=== PATIENT | female | born 1950 ===

== ENCOUNTER 2017-01-17 08:56 | Day surgery (SDC) | payer MEDICARE, BC ==
[2017-01-17] VITALS (17 sets, daily range): BP systolic 120–161; BP diastolic 61–103
[~2017-01-17] VITALS: Ht 165.1 cm; Wt 56.7 kg
[~2017-01-17 08:56] MED LIST: ceFAZolin 1gm in D5W 55ml IVP ONE; celeBREX 200mg Cap **SURGERY PATIENTS ONLY ORAL ONE; oxyCONTIN 20mg tab ORAL ONE
[2017-01-17] MEDS ORDERED: LISINOPRIL40 MG ORAL (09:56)
[2017-01-17] MEDS ORDERED: ATORVASTATIN CA20 MG ORAL (09:56)
--- NOTE | 2017-01-17 10:43 | Pre-Procedure Note/Attestation ---
Pre-Procedure Note/Attestation Complete Prior to Procedure Planned Procedure: left Procedure Narrative: ankle orif Indications for Procedure Pre-Operative Diagnosis: left ankle fracture Attestation I attest that I discussed the nature of the procedure; its benefits; risks and complications; and alternatives (and the risks and benefits of such alternatives ), prior to the procedure, with the patient (or the patient's legal security systems sales representative). I attest that, if there was a reasonable possibility of needing a blood transfusion, the patient (or the patient's legal security systems sales representative) was given the [facility] standardized written summary, pursuant to the [place] Blood Safety Act ([place] Health and Safety Code # 1645, as amended). I attest that I re-evaluated the patient just prior to the surgery and that there has been no change in the patient's H&P, except as documented below: ASHLEY MARTINEZ Jan 17, 2017 10:43
--- NOTE | 2017-01-17 10:43 | Operative Note - PDOC ---
Operative Note Operative Note Pre-op Diagnosis: left ankle fracture Procedure: left ankle orif Post-op Diagnosis: same as pre-op plus Operative Findings: consistent w/pre-op dx studies Anesthesia: regional Specimen: none Complications: none Condition: stable Estimated Blood Loss: none Implant(s) used?: Yes ASHLEY MARTINEZ Jan 17, 2017 10:43
[2017-01-17] MEDS ORDERED: Morphine Sulfate 10mg/ml Inj ONE (11:00)
[2017-01-17] MEDS ORDERED: Midazolam 2mg/2ml Inj ONE (11:00)
[2017-01-17] MEDS ORDERED: Lidocaine 1% MPF 10mg/ml 5ml ONE (11:00)
[2017-01-17] MEDS ORDERED: Metoclopramide 10mg/2ml Inj ONE (11:00)
[2017-01-17] MEDS ORDERED: Ketorolac 30mg Inj ONE (11:00)
[2017-01-17] MEDS ORDERED: Propofol 10mg/ml 20ml IV ONE (11:00)
[2017-01-17] MEDS ORDERED: Sterile Water Irrig 1000ml IRRIG ONE (11:00)
[2017-01-17] MEDS ORDERED: LR 1000ml ONE (11:00)
[2017-01-17] MEDS ORDERED: NS Irrig 1000ml IRRIG ONE (11:10)
--- NOTE | 2017-01-17 11:56 | Anethesia Preoperative Eval ---
Anesthesia Pre-op PMH/ROS General Date of Evaluation: Jan 17, 2017 Time of Evaluation: 11:54 Anesthesiologist: maria isabel ASA Score: ASA 2 Mallampati Score Class I : Soft palate, uvula, fauces, pillars visible Class II: Soft palate, uvula, fauces visible Class III: Soft palate, base of uvula visible Class IV: Only hard plate visible Mallampati Classification: Class II Surgeon: kassy Diagnosis: left ankle fx Surgical Procedure: ORIF left ankle Anesthesia History: none Family History: no anesthesia problems Allergies: Coded Allergies: No Known Allergies (Unverified , 01/16/17) Medications: see eMAR Past Medical History Cardiovascular: Reports: HTN Pulmonary: Denies: COPD, SARAH, asthma, other Gastrointestinal/Genitourinary: Denies: CRI, ESRD, GERD, other Neurologic/Psychiatric: Denies: CVA, TIA, dementia, depression/anxiety, other Endocrine: Denies: DM, hypothyroidism, other, steroids HEENT: Denies: [place] (L), [place] (R), cataract (L), cataract (R), glaucoma, other Hematology/Immune: Denies: DVT, anemia, bleeding disorder, other Musculoskeletal/Integumentary: Reports: OA Anesthesia Pre-op Phys. Exam Physician Exam Last Vital Signs Date Time Temp Pulse Resp B/P Pulse Ox O2 Delivery O2 Flow Rate FiO2 01/17/17 09:35 98.7 63 20 143/86 99 Room Air Constitutional: NAD Neurologic: CN 2-12 intact Cardiovascular: RRR Respiratory: CTA Gastrointestinal: S/NT/ND Airway Exam Mallampati Score: Class II MO: full ROM: full Dentures: no lower, no upper Anesthesia Pre-op A/P Studies Pre-op Studies: EKG - sr Risk Assessment & Plan Plan: general Status Change Before Surgery: No Pre-Antibiotics Drug: ancef Given Within 1 Hr of Incision: Yes Time Given: 11:35 DORETHA GARCIA CRNA Jan 17, 2017 11:56
[2017-01-17] MEDS ORDERED: Acetaminophen (Non formulary) 1,000 MG/100 ML ML IV ONE (11:57)
[2017-01-17] MEDS ORDERED: Metoclopramide 10mg/2ml Inj IVP PRN (12:00)
[2017-01-17] MEDS ORDERED: HYDROmorphone 1mg/ml Carpuject SUBQ PRN (12:00)
[2017-01-17] MEDS ORDERED: fentaNYL 100 mcg/2 mL IV PRN (12:00)
[2017-01-17] MEDS ORDERED: Norco 5mg/325mg tab ORAL PRN (12:00)
[2017-01-17] MEDS ORDERED: Tylenol #3 tab (300mg/30mg) ORAL PRN (12:00)
[2017-01-17] MEDS ORDERED: Meperidine 25mg/0.5ml Inj (FOR RIGORS ONLY) IV PRN (12:00)
[2017-01-17] MEDS ORDERED: D5 1/2NS 1,000 ML IV SCH (14:00)
[2017-01-17] MEDS ORDERED: Ropivacaine 2mg/ml Amp INJ ONE ×2 (14:28→14:37)
[2017-01-17] MEDS ORDERED: Lidocaine 2% MPF 5ml Vial INJ ONE (14:29)
--- NOTE | 2017-01-17 16:24 | 48 Hour Post Anesthesia Eval ---
Post Anesthesia Evaluation Procedure: left ankle ORIF Date of Evaluation: Jan 17, 2017 Time of Evaluation: 16:24 Blood Pressure Systolic: 112 0: 60 Pulse Rate: 70 Respiratory Rate: 14 O2 Sat by Pulse Oximetry: 99 Airway: patent Nausea: No Vomiting: No Hydration Status: adequate Cardiopulmonary Status: stable Mental Status/LOC: patient returned to baseline Post-Anesthesia Complications: none Follow-up care needed: N/A DORETHA GARCIA CRNA Jan 17, 2017 16:24
--- NOTE | 2017-01-17 16:25 | Immediate Post-Op Evaluation ---
Immediate Post-Op Evalulation Immediate Post-Op Evalulation Procedure: left ankle ORIF Date of Evaluation: Jan 17, 2017 Time of Evaluation: 13:00 IV Fluids: 500 Blood Pressure Systolic: 156 Blood Pressure Diastolic: 83 Pulse Rate: 81 Respiratory Rate: 12 O2 Sat by Pulse Oximetry: 100 Temperature (Fahrenheit): 99.3 Nausea: No Vomiting: No Complications none Patient Status: awake, reacts, patent Hydration Status: adequate Drug: ancef Given Within 1 Hr of Incision: Yes Time Given: 11:30 DORETHA GARCIA CRNA Jan 17, 2017 16:25
--- NOTE | 2017-01-17 23:30 | Operative Note - Dictated ---
DATE OF OPERATION: 01/17/2017 PREOPERATIVE DIAGNOSIS: Left trimalleolar ankle fracture dislocation. POSTOPERATIVE DIAGNOSIS: Left trimalleolar ankle fracture dislocation. PROCEDURES: Open reduction and internal fixation of left trimalleolar ankle fracture dislocation. ANESTHESIA: Popliteal with general. INDICATION FOR PROCEDURE: The patient is a pleasant female, who sustained a mechanical fall. She was diagnosed with a displaced trimalleolar ankle fracture dislocation. She was placed in a cast to let the swelling subside. She subsequently was admitted for left ankle open reduction and internal fixation. Risks, limitations, expectations, and complications of the procedure were discussed in detail including nonunion, malunion, need for future surgery, risk of anesthesia, medical complications, DVT, PE, and wound complications. DESCRIPTION OF PROCEDURE: An informed consent was obtained. The patient was put on operating table and then placed on block as well as general anesthesia. Tourniquet was applied to the left proximal leg. The left leg was prepped and draped in a sterile manner. Time-out was performed. Ancef was administered. An Esmarch was used to exsanguinate the extremity and lateral skin incision was then made. Blunt dissection of the femur was performed. There was some comminution. Lateral cortex of the bone is very superior osteoporotic bone. It is difficult to use the clamps for reduction fracture with the bone. Therefore, technique was performed. A [employer] distal fibular plate was selected. Distally, a cortical screw was placed and further reduction was performed and the cortical screw was placed in the proximal shaft. Once that was completed, 3 additional cortical screws were placed in the shaft. Once that was completed, 3 distal locking screws were placed with placing one of the cortical nonlocking screws. Once that was done, the wound was copiously irrigated. The skin was closed using 2-0 Vicryl, 3-0 Vicryl, and 3-0 Monocryl sutures. At this point, 2 guidewires were placed through the medial malleolus with two 4.0 cannulated screws were then placed percutaneously. Once that was done, a posterior splint was applied. The patient was awoken and taken to the recovery room with stable vital signs. ESTIMATED BLOOD LOSS: Minimal. COMPLICATIONS: None. SPECIMENS: None. IMPLANTS: Distal fibula plate with two 4.0 cannulated screws. Wilfred Galdamez M.D. DR: ADRIAN JOB#: [id number] CC:
--- NOTE | 2017-01-20 08:38 | Diagnostic Imaging Report ---
Indication: FX, intraoperative Technique: Digital intraoperative images Comparison: None Findings: Intraoperative images document repair of medial malleolar fracture with 2 screws. There is also a lateral sideplate and screws in the distal fibula. Impression: Intraoperative imaging, as described
== END 2017-01-17 16:00 | disposition home or self-care (01) ==
LOC: SUR 08:56
DX: S82.852A Displaced trimalleolar fracture of left lower leg, initial encounter for closed fracture (principal); X58.XXXA Exposure to other specified factors, initial encounter; Y92.89 Other specified places as the place of occurrence of the external cause; Y99.9 Unspecified external cause status; E78.5 Hyperlipidemia, unspecified; I10 Essential (primary) hypertension; M19.90 Unspecified osteoarthritis, unspecified site; F12.90 Cannabis use, unspecified, uncomplicated
CPT/HCPCS: 76000; 94003; 94150; J2250; J2405; J2765